=== PATIENT | male | born 1970 | race Caucasian/White ===

== ENCOUNTER 2019-09-16 10:59 | Emergency (ER) | payer SELFPAY ==
[2019-09-16] MEDS ORDERED: ASPIRIN 81 MG CHEWABLE TABLET PO ONE (11:39)
--- NOTE | 2019-09-16 11:53 | Emergency Department Record ---
History of Present Illness - General Chief Complaint: Rapid heartbeat Stated Complaint: FAST HEART RATE Time Seen by Provider: 09/16/19 11:39 Source: Patient, RN notes reviewed Mode of Arrival: Ambulatory - History of Present Illness Initial Comments: patient stated an irregular heart rate on the treadmil 3 hours ago and he had atrial fib 7 years ago with a cardioversion. patient took two asa 81 mg prior to arrival to the ED and he denies chest pain and denies dysnpea or sweating and he states he has been drinking alot of coffee in the last couple of days. No leg pains and no abdominal pain. MD Complaint: Irregular heart beat Associated Symptoms: Shortness of breath, Other - Related Data Home Medications Medication Instructions Recorded Confirmed Last Taken Ascorbic Acid [Vitamin C] 500 mg PO DAILY 09/16/19 09/16/19 09/16/19 Aspirin Chewable 162 mg PO DAILY 09/16/19 09/16/19 09/16/19 Cholecalciferol (Vitamin D3) 2,000 unit PO DAILY 09/16/19 09/16/19 09/16/19 [Vitamin D3] Previous Rx's Medication Instructions Recorded Metoprolol Succinate [Toprol Xl] 25 mg PO DAILY #30 tab.er.24h 09/16/19 Rivaroxaban [Xarelto] 20 mg PO DAILY #30 tab 09/16/19 Allergies Allergy/AdvReac Type Severity Reaction Status Date / Time No Known Drug Allergies Allergy Verified 09/16/19 11:10 Travel Screening - Travel/Exposure Within Last 30 Days Have you traveled within the last 30 days?: No Review of Systems Reviewed: No additional complaints except as noted below Constitutional: Reports: As per HPI. Denies: Chills, Fever, Malaise, Night sweats, Weakness, Weight change Eyes: Reports: As per HPI. Denies: Eye discharge, Eye pain, Photophobia, Vision change ENT: Reports: As per HPI. Denies: Congestion, Dental pain, Ear pain, Epistaxis, Hearing loss, Throat pain Respiratory: Reports: As per HPI. Denies: Cough, Dyspnea, Hemoptysis, Stridor, Wheezes Cardiovascular: Reports: As per HPI, Arrhythmia. Denies: Chest pain, Dyspnea on exertion, Edema, Murmurs, Orthopnea, Palpitations, Paroxysmal nocturnal dyspnea, Rheumatic Fever, Syncope Endocrine: Reports: As per HPI. Denies: Fatigue, Heat or cold intolerance, Polydipsia, Polyuria Gastrointestinal: Reports: As per HPI. Denies: Abdominal pain, Constipation, Diarrhea, Hematemesis, Hematochezia, Melena, Nausea, Vomiting Genitourinary: Reports: As per HPI. Denies: Dysuria, Frequency, Hematuria, Incontinence, Retention, Testicular pain, Testicular mass, Urgency Musculoskeletal: Reports: As per HPI. Denies: Arthralgia, Back pain, Gout, Joint swelling, Myalgia, Neck pain Skin: Reports: As per HPI. Denies: Bruising, Change in color, Change in hair/nails, Lesions, Pruritus, Rash Neurological: Reports: As per HPI. Denies: Abnormal gait, Confusion, Headache, Numbness, Paresthesias, Seizure, Tingling, Tremors, Vertigo, Weakness Psychiatric: Reports: As per HPI. Denies: Anxiety, Auditory hallucinations, Depression, Homicidal thoughts, Suicidal thoughts, Visual hallucinations Hematological/Lymphatic: Reports: As per HPI. Denies: Anemia, Blood Clots, Easy bleeding, Easy bruising, Swollen glands Past Medical History - SOCIAL HISTORY Smoking Status: Never smoker Alcohol Use: None Drug Use: None - RESPIRATORY Hx Respiratory Disorders: No - CARDIOVASCULAR Hx Cardio Disorders: Yes Hx Hypertension: Yes Hx Irregular Heartbeat: Yes (afib) - NEURO Hx Neuro Disorders: No - GI Hx GI Disorders: No - Hx Genitourinary Disorders: No - ENDOCRINE Hx Endocrine Disorders: No - MUSCULOSKELETAL Hx Musculoskeletal Disorders: No - PSYCH Hx Psych Problems: No - HEMATOLOGY/ONCOLOGY Hx Hematology/Oncology Disorders: No Family Medical History Any Significant Family History?: No Physical Exam - General General Appearance: Alert, Oriented x3, Cooperative, No acute distress - Head Head exam: Normal inspection - Eye Eye exam: Normal appearance, PERRL Pupils: Normal accommodation - ENT ENT exam: Normal exam, Mucous membranes moist, Normal external ear exam, Normal orophraynx, TM's normal bilaterally Ear exam: Normal external inspection. negative: External canal tenderness Nasal Exam: Normal inspection. negative: Discharge, Sinus tenderness Mouth exam: Normal external inspection, Tongue normal Teeth exam: Normal inspection. negative: Dental caries Throat exam: Normal inspection. negative: Tonsillar erythema, Tonsillar exudate - Neck Neck exam: Normal inspection, Full ROM. negative: Tenderness - Respiratory Respiratory exam: Normal lung sounds bilaterally. negative: Respiratory distress - Cardiovascular Cardiovascular Exam: Regular rate, Normal rhythm, Normal heart sounds - GI/Abdominal GI/Abdominal exam: Soft, Normal bowel sounds. negative: Tenderness - Rectal Rectal exam: Deferred - exam: Deferred - Extremities Extremities exam: Normal inspection, Full ROM, Normal capillary refill. negative: Tenderness - Back Back exam: Reports: Normal inspection, Full ROM. Denies: Muscle spasm, Rash noted, Tenderness - Neurological Neurological exam: Alert, Normal gait, Oriented X3, Reflexes normal - Psychiatric Psychiatric exam: Normal affect, Normal mood - Skin Skin exam: Dry, Intact, Normal color, Warm Course Vital Signs 09/16/19 11:02 Pulse Rate 68 Respiratory 20 Rate Blood Pressure 178/108 Pulse Ox 97 - Reevaluation(s) Reevaluation #1: discussed plan of care with patient and and they agree with the plan of care of outpatient consult with cardiology and starting xarelto and toprol 09/16/19 14:10 Medical Decision Making - Data Complexity MDM Data: Labs Ordered and/or Reviewed (two trop negative), X-Ray Ordered and/or Reviewed (atrial fib and rate is controlled) - Lab Data Result diagrams: 09/16/19 11:10 09/16/19 11:10 Disposition Clinical Impression: Atrial fibrillation Qualifiers: Atrial fibrillation type: paroxysmal Qualified Code(s): I48.0 - Paroxysmal atrial fibrillation Disposition: Home, Self-Care Condition: (1) Good Instructions: A-fib (Atrial Fibrillation) (ED) Additional Instructions: follow up with cardiology next week they will call tomorrow and set up an appointment take xarelto 20 mg once a day toprolxl 25 mg once a day return if worse Prescriptions: Metoprolol Succinate [Toprol Xl] 25 mg PO DAILY #30 tab.er.24h Rivaroxaban [Xarelto] 20 mg PO DAILY #30 tab Forms: Patient Portal Access Time of Disposition: 14:16 Quality - Quality Measures Quality Measures: N/A - Blood Pressure Screening Does Patient Have Any of the Following: No Blood Pressure Classification: Hypertensive Reading Systolic Measurement: 178 Diastolic Measurement: 108 Screening for High Blood Pressure: < Pre-Hypertensive BP, F/U Documented > [[id number]] Pre-Hypertensive Follow-up Interventions: Referral to alternative/primary care provider.
[2019-09-16 11:57] LABS: ABSOLUTE NEUTROPHIL COUNT 2.38; BASO % 0.2 % (0-6); EOS % 1.3 % (0-6); GRAN % 43.4 % (47-80); HEMATOCRIT 45.9 % (42.0-52.0); HEMOGLOBIN 16.1 gm/dl (14.0-18.0); MEAN CELL VOLUME 87.1 fl (81-97); MEAN CORPUSCULAR HEMOGLOBIN 30.6 pg (27-33); MEAN CORPUSCULAR HGB CONC 35.1 g/dl (32-36); MEAN PLATELET VOLUME 10.2 fl (7.4-10.4); MONO % 12.1 % (0-9); PLATELET COUNT 210 K/uL (130-400); RED BLOOD COUNT 5.27 M/uL (4.40-5.70); RED CELL DISTRIBUTION WIDTH 12.1 % (11.5-14.5); WHITE BLOOD COUNT W/O DIFF 5.5 K/uL (4.2-12.2)
[2019-09-16] MEDS ORDERED: METOPROLOL SUCC 25 MG TAB.ER PO SCH (12:00)
[2019-09-16 12:16] LABS: BLOOD UREA NITROGEN 14 mg/dL (6-20); CREATININE 1.2 mg/dL (0.7-1.2); EST GLOMERULAR FILTRATION RATE > 60 mL/min; GLUCOSE,RANDOM 113 mg/dL (74-109)
--- NOTE | 2019-09-16 12:20 | RADIOLOGY REPORT ---
EXAMINATION: Two View Chest Radiographs EXAM DATE: 09/16/2019 12:07 PM TECHNIQUE: Frontal and lateral views INDICATION: chest pain COMPARISON: None ENCOUNTER: Not applicable FINDINGS: The cardiac and mediastinal silhouette is unremarkable. Lungs are clear. No effusion or pneumothorax. IMPRESSION: No acute findings. Dictated by: David Menard MD on 09/16/2019 12:19 PM. .
[2019-09-16] MEDS ORDERED: RIVAROXABAN 20 MG TABLET PO SCH (14:15)
== END 2019-09-16 14:34 | disposition home or self-care (01) ==
LOC: ER 10:59
DX: I48.0 Paroxysmal atrial fibrillation (principal); R06.02 Shortness of breath; I10 Essential (primary) hypertension
CPT/HCPCS: 71046; 80048; 84484; 85025; 85730; 93005; 93010; 99284